=== PATIENT | male | born 1975 | race Caucasian/White ===

== ENCOUNTER 2025-01-09 06:02 | Emergency (ER) | payer BC, OTHER ==
[~2025-01-09] VITALS: Ht 162.6 cm; Wt 79.8 kg
[2025-01-09 06:35] VITALS: TEMP 99.2
[2025-01-09] MEDS ORDERED: SODIUM CHLORIDE 0.9% 1,800 ML IV ONE (06:45)
[2025-01-09] MEDS ORDERED: 0.9% SODIUM CHLORIDE 10 ML SYRINGE IVP PRN (06:45)
[2025-01-09] MEDS ORDERED: VANCOMYCIN 1.5 GM/WATER(PEG) 300 ML IV ONE (07:00)
[2025-01-09 07:07] VITALS: BP 112/72; PULSE 129; RESP 18; O2SAT 96
[2025-01-09 07:07] LABS: PLATELET COUNT (AUTO) 93 K/uL (150-450); RED BLOOD CELL COUNT(AUTO) 4.64 MIL/uL (4.50-5.90); RED CELL DISTRIBUTION WIDTH 18.1 % (11.5-14.5); WHITE BLOOD COUNT (AUTO) 13.5 K/uL (4.5-11.0)
[2025-01-09 07:17] LABS: CALCIUM, TOTAL 8.4 mg/dL (8.8-10.5); CREATININE 0.75 mg/dL (0.60-1.30); GLOMERULAR FILTR. RATE CALC > 60 mL/min (>60); GLUCOSE,RANDOM 181 mg/dL (70-110); SODIUM SERUM 133 mmol/L (136-145); UREA NITROGEN, BLOOD 22 mg/dL (7-18)
[2025-01-09 07:26] LABS: LACTIC ACID 2.4 mmol/L (0.4-2.0); TROPONIN I-HIGH SENSITIVITY 10 ng/L (<76)
[2025-01-09 07:34] LABS: ASPARTATE AMINOTRANSFERASE 55 U/L (15-37); TOTAL PROTEIN, SERUM 7.5 g/dL (6.4-8.2)
[2025-01-09 07:41] LABS: BAND NEUTROPHILS % (MANUAL) 17 % (0-5); LYMPHOCYTES % (MANUAL) 9 % (22-44); MONOCYTES % (MANUAL) 3 % (2-9); RBC MORPHOLOGY COMMENT NORMAL RBC MORPH; SEGMENTED NEUTROPHILS % 71 % (40-70)
== END 2025-01-09 08:42 | disposition left against medical advice (07) ==
LOC: EMS 06:35
DX: A41.9 Sepsis, unspecified organism (principal); S91.331A Puncture wound without foreign body, right foot, initial encounter; L03.115 Cellulitis of right lower limb; I69.30 Unspecified sequelae of cerebral infarction; G82.50 Quadriplegia, unspecified; Z98.2 Presence of cerebrospinal fluid drainage device; Z93.0 Tracheostomy status; Z88.0 Allergy status to penicillin; X58.XXXA Exposure to other specified factors, initial encounter; Y93.89 Activity, other specified; Y92.89 Other specified places as the place of occurrence of the external cause; Y99.8 Other external cause status
CPT/HCPCS: 99291; 80048; 80076; 83605; 83690; 83880; 84484; 85025; 85379; 85610; 85651; 86140; 87040; 87077; 87205; 36415; 93005; 84145; J3490; 87186